=== PATIENT | male | born 1960 | race Caucasian/White ===

== ENCOUNTER 2017-03-18 15:16 | Inpatient (IN) | payer BC, OTHER ==
[~2017-03-18] VITALS: Ht 182.9 cm; Wt 80.7 kg
[2017-03-18] MEDS ORDERED: ONDANSETRON ODT 4 MG TAB.RAPDIS SL PRN (16:15)
[2017-03-18] MEDS ORDERED: NICOTINE POLACRILEX 4 MG GUM-PK OF TEN BC PRN (16:15)
[2017-03-18] MEDS ORDERED: IBUPROFEN 400 MG TABLET PO PRN (16:15)
[2017-03-18] MEDS ORDERED: CLONIDINE HCL 0.1 MG TABLET PO PRN (16:15)
[2017-03-18] MEDS ORDERED: MAG HYDROX/AL HYDROX/SIMETH 30 ML LIQUID UDC PO PRN (16:15)
[2017-03-18] MEDS ORDERED: LORAZEPAM 1 MG TABLET PO PRN ×2 (16:15)
[2017-03-18] MEDS ORDERED: MIRALAX 17 GM POWD.PACK PO PRN (16:15)
[2017-03-18] MEDS ORDERED: HYDROCORTISONE 2.5% CREAM 20 GM TUBE TOP PRN (16:15)
[2017-03-18] MEDS ORDERED: LOPERAMIDE HCL 2 MG CAPSULE PO PRN ×2 (16:15)
[2017-03-18] MEDS ORDERED: ONDANSETRON 4 MG/2 ML VIAL IM PRN (16:15)
[2017-03-18] MEDS ORDERED: diphenhydrAMINE 50 MG CAPSULE PO PRN (16:15)
[2017-03-18] MEDS ORDERED: MAGNESIUM HYDROXIDE 30 ML LIQUID UDC PO PRN (16:15)
[2017-03-18] MEDS ORDERED: THIAMINE HCL 200 MG/2 ML VIAL IM ONE ×2 (16:15→18:00)
[2017-03-18] MEDS ORDERED: ACETAMINOPHEN 325 MG TABLET PO PRN (16:15)
[2017-03-18] MEDS ORDERED: LORAZEPAM 2 MG/1 ML VIAL IM PRN (16:15)
[2017-03-18 16:30] VITALS: BP 132/90
--- NOTE | 2017-03-18 16:30 | NUR ---
PRE-ASSESSMENT: Pre-Assessment done at intake office, client is A/O x4, he presents with flat affect, anxious mood, he has difficulty sitting still. T 97.8, RR 18, BP 132/90, HR 81, spO2 @ 97% on RA, Pain 0/10. He is fully ambulatory. He denies any allergies, but reports being lactose intolerance; he denies any withdrawal-induced seizure. PMH: Psoriasis, chronic tobacco use. He denies any home medications. Client denies any PCP. Substance history Alcohol (Vodka) 350-750 mL PO daily for the last 5 years, last used 03/16/17 @ 1200 two shots of vodka. Longest period of sobriety maybe a couple of weeks two years ago. Vital signs, blood drawn, urine drug screen protocol discuss with client, he verbalized understanding.
[2017-03-18 17:57] LABS: *AMPHETAMINE, URINE NEGATIVE (NEGATIVE); *BARBITURATE, URINE NEGATIVE (NEGATIVE); *CANNABINOID, URINE POSITIVE (NEGATIVE); *COCCAINE, URINE NEGATIVE (NEGATIVE); *OPIATE, URINE NEGATIVE (NEGATIVE); *PHENCYCLIDINE SCREEN,URINE NEGATIVE (NEGATIVE)
--- NOTE | 2017-03-18 19:32 | NUR ---
Admissions Note 56 year old male admitted to [facility] for withdrawal from alcohol. Client reports PMH of Psoriasis, Chronic tobacco use. Client is oriented to unit, educated about protocols and how to work TV and call light in his room. Weight: 178 pounds. Height: 6" CIWA 3 Client appears anxious, difficulty staying still, generalized body covererd with dry patches d/ psoriasis, he denies any discomfort at this time. Bilateral lung clear on auscultation, abdomen soft, non-tender, no edema noted. Clients voice is soft, he avoids eye contact. Client has NKDA. Regular lactose free diet, ordered. Full code status ordered. Client denies any history of seizures. LBM was , small/brown/soft. Client denies a PCP. He refuses FLU/PNA vaccine at this time, stating he is afraid he might get sick because of it. He gives verbal consent for HIV. Client states that he lives alone, but has a great support with his daughter and friends. He denies any prior treatments and stated the longest period of sobriety maybe for a couple of weeks two years ago, but he can't remember the dates. Dr Joe assessed client. Urine was collected upon admission. All safety measures instituted. [place]/seizure/fall precaution. Call light within reach. Will continue to monitor. Addendum: 03/18/17 at 1933 by JAVIER JAY RN Client was admitted to [facility] @ [id number]
[2017-03-18 20:00] VITALS: BP 139/96
--- NOTE | 2017-03-18 20:00 | NUR ---
1999 Patient received awake, alert and ambulating in hallway. Gait is steady. Patient responds to nurse's greeting and introduction with a smile and, " Hi, oh I feel fine". Patient's color is pink and his skin is warm, dry and intact. Patient noted to be wearing several layers of clothing. Patient states, " Oh, I'm always cold whenever there is any kind of air conditioning around. Patient is oriented to person, place, day, date and his personal situation. Patient denies feeling any type of pain/discomfort and he states, " I'm going to talk to Dr. Joe tomorrow and see if I can leave, after I've been here for 24 hours. I think I jumped the gun and I'm really not sure that I need a formal detox or rehab right now. I could have just continued to go to meetings because I really had no craving for a drink once I started going to the AA meetings". Patient states that he ate his PM meal today and has been drinking lots of fluids here, with no gastric issue noted. Patient states that he has not attended [facility] groups yet, though he does try to go downstairs to the hospital patio, for a smoke break when he can. Vital signs are: 98.4-83-18 139/96, O2 Sat 100%, CIWA 3 . Fall/Seizure precautions in place. Patient given more blankets for his bed and comfort. Patient was admitted today, 03/18/17 for Alcohol withdrawal and he is presently on Prn medications only for any withdrawal symptoms. Patient is friendly, cooperative and verbally appropriate when interacting with nurse, though he is also noted to be somewhat anxious, suspicious and hypervigilant in his mood/ manner/attitude. Bed is locked and in lowest position, padded bed rails are up X 2 and call light on patient's bed for easy access.
[2017-03-18] MEDS ORDERED: LORAZEPAM 1 MG TABLET PO SCH (21:00)
--- NOTE | 2017-03-18 21:00 | NUR ---
Patient refused Ativan 2 mg p.o. CIWA 2. Patient states, " I feel just fine and I don't have any kind of symptoms, so I don't really need to take that."
[2017-03-18 22:59] LABS: BASOPHILS % (AUTO) 0.7 % (0.0-2.0); EOSINOPHILS # (AUTO) 0.1 K/uL (0.0-0.7); EOSINOPHILS % (AUTO) 1.9 % (0.0-7.0); HEMATOCRIT 38.3 % (40-50); HEMOGLOBIN 12.7 G/DL (14.0-18.0); LYMPHOCYTES # (AUTO) 1.2 K/UL (0.8-4.8); LYMPHOCYTES % (AUTO) 22.7 % (20.5-51.5); MEAN CORPUSCULAR HEMOGLOBIN 30.4 UUG (27.0-31.0); MEAN CORPUSCULAR HGB CONC 33 g/dL (32.0-37.0); MEAN CORPUSCULAR VOLUME 91.4 FL (82.0-92.0); MONOCYTES # (AUTO) 0.7 K/UL (0.1-1.30); MONOCYTES % (AUTO) 13.8 % (0.0-11.0); NEUTROPHILS # (AUTO) 3.1 K/UL (1.8-8.9); NEUTROPHILS % (AUTO) 60.9 % (38.5-71.5); PLATELET COUNT (AUTO) 304 K/UL (150-450); RED BLOOD CELL COUNT(AUTO) 4.19 MIL/UL (4.7-6.1); WHITE BLOOD COUNT (AUTO) 5.1 K/UL (4.0-11.2)
[2017-03-18 23:18] LABS: ALANINE AMINOTRANSFERASE 49 U/L (16-63); ALKALINE PHOSPHATASE 124 U/L (50-136); AMYLASE 77 U/L (25-115); ASPARTATE AMINOTRANSFERASE 36 U/L (15-37); BILIRUBIN,TOTAL 0.3 mg/dL (0.2-1.0); CARBON DIOXIDE 31 mmol/L (21-32); CHLORIDE 103 mmol/L (98-107); CHOLESTEROL 147 mg/dL (<200); CREATININE 1.2 mg/dL (0.6-1.3); GLUCOSE 109 mg/dL (74-106); HDL CHOLESTEROL 46 mg/dL (40-60); MAGNESIUM 1.9 mg/dL (1.8-2.4); POTASSIUM 3.7 mmol/L (3.5-5.1); TOTAL PROTEIN, SERUM 6.9 g/dL (6.4-8.2); TRIGLYCERIDES 110 MG/DL (30-150); UREA NITROGEN, BLOOD 9 mg/dL (7-18)
[2017-03-18 23:29] LABS: ETHANOL < 3 MG/DL (0-0)
[2017-03-19] VITALS: BP 131/90
--- NOTE | 2017-03-19 | NUR ---
V/S are: 98.2-79-14 131/90, O2 Sat 100%, CIWA 1.
--- NOTE | 2017-03-19 04:00 | NUR ---
Patient refused to be awakened for V/S, CIWA to be done at this time.
--- NOTE | 2017-03-19 06:30 | NUR ---
0630 Patient slept a total of 6.5 hours and he had 1 void and 1 stools. Total intake was 1,355 ml p.o. No prn medications given this shift. V/SS afebrile, last CIWA 1 at 0000. Patient is presently sleeping comfortably in stable condition with eyes closed and respirations quiet, even, unlabored at 12.
[2017-03-19 08:00] VITALS: BP 114/74
--- NOTE | 2017-03-19 08:30 | NUR ---
START OF SHIFT NOTE 56 year old male admitted for withdrawal from alcohol. PMH of Psoriasis, Chronic tobacco use. No home medications. Report received from night RN. Last CIWA 1. Slept 6.5 hours. Refused one time ativan order. On 0800 rounds, patient sleeping but alert to verbal. Alert and oriented x 4. Denies pain. CIWA 1. Temp 98.0, BP 114/74, pulse 68, oxygen saturation 100 percent. Bed in low position and locked, side rails up x 2 and padded, call light within reach. Will continue to monitor.
[2017-03-19] MEDS: THIAMINE HCL 100 MG TABLET PO SCH (08:48)
[2017-03-19] MEDS: MULTIVITAMINS,THERAPEUTIC TABLET PO SCH (08:49)
[2017-03-19] MEDS: FOLIC ACID 1 MG TABLET PO SCH (08:49)
[2017-03-19] MEDS: NICOTINE 7 MG/24HR PATCH TD SCH (08:50)
[2017-03-19] MEDS ORDERED: TUBERCULIN,PURIF.PROT.DERIV. 5 TU/0.1 ML TEST ID ONE (09:00)
[2017-03-19 12:00] VITALS: BP 131/94
--- NOTE | 2017-03-19 13:32 | NUR ---
PRN MEDICATION ADMINISTRATION BP 131/94. Given Clonidine due to DBP>90.
--- NOTE | 2017-03-19 14:29 | NUR ---
PRN MEDICATION ADMINISTRATION Pt given Hytone cream for psoriasis over chest, arms, legs. Pt reports thigh area especially itchy due to psoriasis. Cream in 20 gm tube. Dispensed 10 gm, about 15 cc, due to large area to be covered.
[2017-03-19 14:32] VITALS: BP 113/76
--- NOTE | 2017-03-19 14:32 | NUR ---
PRN MEDICATION REASSESSMENT BP 113/76 after clonidine given at 1332.
--- NOTE | 2017-03-19 15:29 | NUR ---
PRN MEDICATION REASSESSMENT Pt reports decrease in skin itching after application of Hytone cream.
[2017-03-19 17:03] VITALS: BP 114/73
--- NOTE | 2017-03-19 18:26 | NUR ---
END OF SHIFT NOTE 56 year old male admitted for withdrawal from alcohol. PMH of Psoriasis, Chronic tobacco use. No home medications. Alert and oriented x 4. Denies pain. CIWA 1 at 0800, 1200 and at 1600. PRN Clonidine given at 1332 for BP 131/94. At 1432, BP 113/76. PRN Hytone cream given at 1429 for Pt reporting itching due to psoriasis. At 1529, Pt reports relief of itching. Intake 75 percent at breakfast and lunch. Intake 100 percent at dinner. Fluid intake 1855 ml. Void x 3, BM x 1 this shift. Safety measures in place. Bed in low position and locked, side rails up x 2 and padded, call light within reach. Will give report to night RN at 1900.
[2017-03-19] MEDS ORDERED: IBUP-1953 PO (19:12)
[2017-03-19] MEDS ORDERED: HYDR20CR3 TOP (19:12)
[2017-03-19] MEDS ORDERED: HYDR25CA PO (19:12)
[2017-03-19] MEDS ORDERED: DIPH50CA37 PO (19:12)
[2017-03-19] MEDS ORDERED: NICO4GUM38 BC (19:12)
--- NOTE | 2017-03-19 19:30 | NUR ---
START OF SHIFT NOTE 56 year old male admitted for ETOH dependency. PMH of Psoriasis, Chronic tobacco use.Report received from day shift RN. Last CIWA 1.Alert and oriented x 4.NKA,FULL CODE status,on lactose free diet.Pt received in a stable condition,all safety measures in place.Bed is in lowest position and locked, side rails up x 2 and padded, call light within reach. Will continue to monitor.
[2017-03-19 20:00] VITALS: BP 111/68
--- NOTE | 2017-03-20 | NUR ---
V/S REFUSED,CIWA DEFERRED Pt is fast asleep,breathing is even and non labored,no s/s of distress noted,will continue to monitor.
--- NOTE | 2017-03-20 04:00 | NUR ---
V/S REFUSED,CIWA DEFERRED Pt is fast asleep,breathing is even and non labored,no s/s of distress noted,will continue to monitor.
[2017-03-20 06:05] LABS: HEPATITIS B SURFACE AG Negative (Negative)
--- NOTE | 2017-03-20 06:45 | NUR ---
END OF SHIFT 56 year old male admitted for ETOH dependency. PMH of Psoriasis, Chronic tobacco use.Report received from day shift RN. Last CIWA 1.Alert and oriented x 4.NKA,FULL CODE status,on lactose free diet.Pt slept all night without any problem,no PRN meds given last night;pt slept 6 hrs;fluid intake was 1000 mls,voided x 2;no c/o pain or distress noted.Pt is scheduled for discharge today; all safety measures in place.Bed is in lowest position and locked, side rails up x 2 and padded, call light within reach. Will continue to monitor.
--- NOTE | 2017-03-20 07:47 | NUR ---
START OF SHIFT NOTE Received pt aox4. Pt not on taper. No prns given during shift. last CIWA 1. Vital signs stable. Pt scheduled for discharge this shift. Pt reports readiness for discharge. Will discharge pt this shift.
[2017-03-20 08:00] VITALS: BP 113/78
[2017-03-20] MEDS: FOLIC ACID 1 MG TABLET PO SCH (08:22)
[2017-03-20] MEDS: MULTIVITAMINS,THERAPEUTIC TABLET PO SCH (08:22)
[2017-03-20] MEDS: THIAMINE HCL 100 MG TABLET PO SCH (08:22)
[2017-03-20] MEDS: NICOTINE 7 MG/24HR PATCH TD SCH (08:22)
--- NOTE | 2017-03-20 09:47 | NUR ---
DISCHARGE NOTE PT IS IN STABLE CONDITION. VITALS WNL. PT IS AOX4, SKIN INTACT. PT DENIES S/I OR H/I. ALL DISCHARGE PAPERWORK COMPLETED, DATED AND SIGNED. PT EDUCATED ABOUT DC INSTRUCTIONS, WHAT TO DO AFTER DISCHARGE AND WHEN TO CONTACT MD. PT VERBALIZED UNDERSTANDING OF ALL INFO GIVEN. PT LAST CIWA 1. PT WAS DISCHARGED FROM [facility] ON 03/20/17 AT 0930. PT LEFT BUILDING WITH ALL BELONGINGS AND PRESCRIPTIONS, PT DID NOT BRING ANY MEDICATIONS TO UNIT. MD HAS BEEN CONTACTED AND NOTIFIED OF DC.
== END 2017-03-20 09:30 | disposition other institution (70) | DRG 895 ==
LOC: SRC 15:34
PROVIDERS: ADMIT Internal Medicine; ATTEND Internal Medicine
PROC: HZ2ZZZZ Detoxification Services for Substance Abuse Treatment (ICD-10-PCS; principal; 2017-03-18)
PROC: HZ41ZZZ Group Counseling for Substance Abuse Treatment, Behavioral (ICD-10-PCS; 2017-03-19)
DX: F10.230 Alcohol dependence with withdrawal, uncomplicated (principal); D64.9 Anemia, unspecified; F17.210 Nicotine dependence, cigarettes, uncomplicated; Y90.9 Presence of alcohol in blood, level not specified; L40.9 Psoriasis, unspecified; Z80.3 Family history of malignant neoplasm of breast; Z81.1 Family history of alcohol abuse and dependence; G47.00 Insomnia, unspecified; F12.90 Cannabis use, unspecified, uncomplicated
CPT/HCPCS: 36415; 70030-TC; 80307; 80349; 83735; 85025; 86580; 86592; 86705; 86803; 87340; 87806; A9150; G0480; J3411